=== PATIENT | male | born 1955 | race Two or more races ===

== ENCOUNTER 2024-05-22 18:50 | Emergency (ER) | payer OTHER ==
[~2024-05-22] VITALS: Ht 167.6 cm; Wt 93.0 kg
[2024-05-22 19:18] VITALS: BP 150/100; PULSE 107
[2024-05-22 19:27] VITALS: RESP 14
--- NOTE | 2024-05-22 20:14 | DVH ---
Procedure: XY NECK FOR SOFT TISSUE Exam Date: 05/22/2024 07:37 PM History: R/O FOREIGN BODY Comparison Study: None available at time of dictation. Technique: Soft Tissue Neck: AP and lateral views. Findings: No evidence of soft tissue swelling. Epiglottis appears normal. Linear density anterior to the body may represent a small foreign body versus calcification of the thyroid cartilage. Clinical correlation advised. Impression: Linear density anterior to the body may represent a small foreign body versus calcification of the th yroid cartilage. Clinical correlation advised.
--- NOTE | 2024-05-22 20:14 | DVH ---
CHEST RADIOGRAPH Indication: R/O FOREIGN BODY Technique: Single frontal view of the chest was obtained COMPARISON: None FINDINGS: Lines and Tubes: None Lungs: Clear Pleura: No effusion. No pneumothorax. Cardiomediastinal contours: Unremarkable Bones: Unremarkable IMPRESSION: No acute disease. No appreciable radiopaque foreign body.
--- NOTE | 2024-05-22 21:12 | DVH ---
_ Procedure: CT NECK WITHOUT CONTRAST Study Date and Requested Time: 05/22/2024 08:27 PM History: R/O FOREIGN BODY VS CALCIFICATION OF THYROID Comparison: Neck radiograph 03/21/2025 Dose: CTDI: 35.53 mGy DLP: 1006.4 mGycm Technique: Multiplanar images obtained through the neck without contrast Findings: 3mm hyperdensity over the medial wall of the left vallecula /left wall of the glosso epiglottic fold. The finding on radiograph appears to represent calcification of the vertical plate of the cricoid car tilage. Nasopharynx, oropharynx, hypopharynx, and larynx normal in caliber without evidence of focal mass. Pa rotid, submandibular, and sublingual glands within normal limits. Tongue within normal limits. Right palatine tonsilliths are noted. Cervical soft tissues within normal limits with no evidence of significant cervical lymphadenopathy. Thyroid gland is within normal limits. No evidence of superior mediastinal lymphadenopathy. Sclerotic focus over the right C5 and left C6 which may represent bone islands with blastic lesions n ot excluded. No destructive osseous lesions noted. Impression: 3mm hyperdensity over the medial wall of the left vallecula /left wall of the glosso epiglottic fold. correlate for possible small foreign body. The finding on radiograph appears to represent calcification of the vertical plate of the cricoid car tilage.
[2024-05-22] MEDS ORDERED: GLUCAGON EMERG KIT 1mg/1ml IM ONE (21:15)
[2024-05-22 21:38] VITALS: O2SAT 95
--- NOTE | 2024-05-22 21:38 | ED.PDOC ---
Eye-HPI HPI Comments 68 YEAR OLD MALE PRESENTS TO ER WITH COMPLAINTS OF FOREIGN BODY X 1 DAY. PATIENT STATES HE ACCIDENTALLY SWALLOWED A PIECE OF "NICORETTE GUM" APPROXIMATELY 1CM X 1 CM IN SIZE AT 6PM PRIOR TO ARRIVAL TO ER AND FELT SENSATION THAT THE GUM GOT STUCK IN HIS THROAT AND PRESENTS TO ER TODAY FOR R/O FOREIGN BODY. DENIES ANY PAIN AND DENIES USE OF MEDICATIONS FOR CURRENT SYMPTOMS. PATIENT PRESENTS TO ER AMBULATORY ON ARRIVAL, SPEAKING IN CLEAR/COMPLETE SENTENCES, IN NO DISTRESS. DENIES PAINFUL SWALLOWING, DROOLING, CHOKING, NAUSEA/VOMITING, COUGH, SHORTNESS OF BREATH, CHEST PAIN OR ANY FURTHER SYMPTOMS/COMPLAINTS Chief Complaint: Foreign Body Time Seen by MD: 19:31 Primary Care Provider: ISABELLA Reviewed Notes: Nurses Notes, Medications, Allergies Allergies: Coded Allergies: NO KNOWN ALLERGIES (Unverified , 05/22/24) Information Source: Patient Mode of Arrival: Ambulatory Past Medical History PAST MEDICAL HISTORY: Denies Surgical History: Denies all surgeries Family History Family History: Unknown Social History Smoker: Non-Smoker Alcohol: Denies ETOH Use Drugs: Denies Drug Use Lives In: Home Constitutional: denies: chills, diaphoresis, fatigue, fever, malaise, sweats, weakness, others EENTM: reports: others ( STATED IN HPI) Respiratory: denies: cough, hemoptysis, orthopnea, SOB at rest, shortness of breath, SOB with excertion, stridor, wheezing, others Cardiovascular: denies: chest pain, dizzy spells, diaphoresis, Dyspnea on exertion, edema, irregular heart beat, left arm pain, lightheadedness, palpita tions, PND, syncope, others Gastrointestinal: denies: abdomen distended, abdominal pain, blood streaked chris wels, constipated, diarrhea, dysphagia, difficulty swallowing, hematemesis, melena, nausea, poor appetite, poor fluid intake, rectal bleeding, rectal pain, vomiting, others Genitourinary: denies: burning, dysuria, flank pain, frequency, hematuria, incontinence, penile discharge, penile sore, pain, testicle pain, testicle swelling, urgency, others Neurological: denies: dizziness, fainting, headache, left sided numbness, left sided weakness, numbness, paresthesia, pre-existing deficit, right sided numbness, right sided weakness, seizure, speech problems, tingling, tremors, weakness, others Musculoskeletal: denies: back pain, gout, joint pain, joint swelling, muscle pain, muscle stiffness, neck pain, others Integumetry: denies: bruises, change in color, change in hair/nails, dryness, laceration, lesions, lumps, rash, wounds, others Allergic/Immunocompromised: denies: Difficulty Healing, Frequent Infections, Hives, Itching, others Hematologic/Lymphatic: denies: anemia, blood clots, easy bleeding, easy bruisin g, swollen glands, others Endocrine: denies: excessive hunger, excessive sweating, excessive thirst, excessive urination, flushing, intolerance to cold, intolerance to heat, unexplained weight gain, unexplained weight loss, others Psychiatric: denies: anxiety, bipolar disorder, depression, hopeless, panic disorder, schizophrenia, sleepless, suicidal, others Physical Exam General Appearance: No Apparent Distress HEENT: Normal ENT Inspection, PERRL/EOMI, Pharynx Normal (NO FOREIGN BODY APPRECIATED. NORMAL MOUTH/THROAT EXAMINATION), TMs Normal Neck: Full Range of Motion, Non-Tender, Normal Respiratory: Chest Non-Tender, Lungs Clear, No Accessory Muscle Use, No Respiratory Distress, Normal Breath Sounds Cardiovascular: No Murmur, No Gallop, Regular Rate/Rhythm Breast Exam: Deferred Gastrointestinal: NOT DONE Genitalia: Deferred Pelvic: Deferred Rectal: Deferred Extremities: Normal capillary refill, Normal range of motion Neurologic: Alert, No Motor Deficits, Normal Affect, Normal Mood, No Sensory Deficits Cerebellar Function: Normal Reflexes: Normal Skin: Dry, Normal Color, Warm Peripheral Pulses: 2+ Radial (R), 2+ Radial (L), 2+ Brachial (R), 2+ Brachial (L) Lymphatic: No Adenopathy Was a procedure done? Was a procedure done?: No Sedation Sedation?: No EENT DIFF Eye: N/A Sore Throat: URI, Other (FOREIGN BODY, ESOPHAGEAL PERFORATION, MASS) X-Ray, Labs, Meds, VS Vital Signs Date Time Temp Pulse Resp B/P (MAP) Pulse Ox O2 Delivery O2 Flow Rate FiO2 05/22/24 21:38 95 Room Air* 0 21 05/22/24 19:27 14 95 Room Air* 0 21 05/22/24 19:18 97.6 107 14 150/100 (117) 95 PATIENT: FLORINDA GOMEZCCT: [id number]: [id number] : 1955 LOC: ER ROOM / BED: / AGE / SEX: 68 / M ADM STATUS: REG ER SERVICE 30 ORDERING PHYSICIAN: CHASE JAMES PROCEDURE(s): CXR1 - CHEST XRAY 1 VIEW REASON: R/O FOREIGN BODY ORDER NUMBER(s): [id number], ACCESSION NUMBER(s): [id number] CHEST RADIOGRAPH Indication: R/O FOREIGN BODY Technique: Single frontal view of the chest was obtained COMPARISON: None FINDINGS: Lines and Tubes: None Lungs: Clear Pleura: No effusion. No pneumothorax. Cardiomediastinal contours: Unremarkable Bones: Unremarkable IMPRESSION: No acute disease. No appreciable radiopaque foreign body. ATED BY: DARREL ZAVALA MD DICTATED DATE/TIME: 05/22/242008 SIGNED BY: DARREL ZAVALA MD SIGNED DATE/TIME: 05/22/242008 CC: PATIENT: MARKO GOMEZ ACCT: [id number] UNIT: [id number] : 1955 LOC: ER ROOM / BED: / AGE / SEX: 68 / M ADM STATUS: REG ER SERVICE 30 ORDERING PHYSICIAN: CHASE JAMES PROCEDURE(s): NECK - NECK FOR SOFT TISSUE REASON: R/O FOREIGN BODY ORDER NUMBER(s): [id number], ACCESSION NUMBER(s): [id number] Procedure: XY NECK FOR SOFT TISSUE Exam Date: 05/22/2024 07:37 PM History: R/O FOREIGN BODY Comparison Study: None available at time of dictation. Technique: Soft Tissue Neck: AP and lateral views. Findings: No evidence of soft tissue swelling. Epiglottis appears normal. Linear density anterior to the body may represent a small foreign body versus calcification of the thyroid cartilage. Clinical correlation advised. Impression: Linear density anterior to the body may represent a small foreign body versus calcification of the thyroid cartilage. Clinical correlation advised. ATED BY: DARREL ZAVALA MD DICTATED DATE/TIME: 05/22/242008 SIGNED BY: DARREL ZAVALA MD SIGNED DATE/TIME: 05/22/242008 CC: PATIENT: MARKO GOMEZ ACCT: [id number] UNIT: [id number] : 1955 LOC: ER ROOM / BED: / AGE / SEX: 68 / M ADM STATUS: REG ER SERVICE 20 ORDERING PHYSICIAN: CHASE JAMES PROCEDURE(s): NKICT - NECK WITHOUT CONTRAST REASON: R/O FOREIGN BODY VS CALCIFICATION OF THYROID ORDER NUMBER(s): [id number], ACCESSION NUMBER(s): [id number] _ Procedure: CT NECK WITHOUT CONTRAST Study Date and Requested Time: 05/22/2024 08:27 PM History: R/O FOREIGN BODY VS CALCIFICATION OF THYROID Comparison: Neck radiograph 03/21/2025 Dose: CTDI: 35.53 mGy DLP: 1006.4 mGycm Technique: Multiplanar images obtained through the neck without contrast Findings: 3mm hyperdensity over the medial wall of the left vallecula /left wall of the glosso epiglottic fold. The finding on radiograph appears to represent calcification of the vertical plate of the cricoid cartilage. Nasopharynx, oropharynx, hypopharynx, and larynx normal in caliber without evidence of focal mass. Parotid, submandibular, and sublingual glands within normal limits. Tongue within normal limits. Right palatine tonsilliths are noted. Cervical soft tissues within normal limits with no evidence of significant cervical lymphadenopathy. Thyroid gland is within normal limits. No evidence of superior mediastinal lymphadenopathy. Sclerotic focus over the right C5 and left C6 which may represent bone islands with blastic lesions not excluded. No destructive osseous lesions noted. Impression: 3mm hyperdensity over the medial wall of the left vallecula /left wall of the glosso epiglottic fold. correlate for possible small foreign body. The finding on radiograph appears to represent calcification of the vertical plate of the cricoid cartilage. ATED BY: SARA PLATT DO DICTATED DATE/TIME: 05/22/242108 SIGNED BY: SARA PLATT DO SIGNED DATE/TIME: 05/22/242108 CC: X-RAY IMAGING/CT NECK IMAGING REVIEWED PATIENT STATES AFTER HIS CT NECK IMAGING WAS DONE THAT HIS SYMPTOMS OF FOREIGN BODY SENSATION FULLY SUBSIDED AND CURRENTLY IS NOT EXPERIENCING ANY FOREIGN BODY SENSATION IN THROAT PATIENT TOLERATING P.O. INTAKE WELL WITHOUT PAIN/DIFFICULTY AND IS ASYMPTOMATIC PRIOR TO DISCHARGE ADVISED TO DRINK PLENTY OF FLUIDS ADVISED TO FOLLOW UP WITH PCP AND ENT IN 1-2 DAYS PATIENT VERBALIZED UNDERSTANDING AND AGREEABLE WITH CURRENT PLAN OF CARE ADVISED TO RETURN TO ER IMMEDIATELY IF SYMPTOMS WORSEN Images Reviewed?: Images reviewed and evaluated by me Time of 1ST Reevaluation: 21:00 Reevaluation 1ST: N/A Time of 2ND Reevaluation: 21:30 Reevaluation 2ND: Resolved Patient Education/Counseling: Diagnosis, Treatment, Prognosis, Need For Follow Up Family Education/Counseling: Other Departure 1 Departure Time of Disposition: 21:32 Impression: Primary Impression: Encounter for observation for suspected ingested foreign body ruled out Disposition: HOME / SELF CARE / HOMELESS Condition: Stable Discharged With: Self Critical Care Note Critical Care Time?: No Stability Stability form required: No Heart Score Heart Score: Heart Score Response (Comments) Value History N/A 0 EKG N/A 0 Age N/A 0 Risk Factors N/A 0 Troponin N/A 0 Total 0 CHASE JAMES May 22, 2024 21:38
== END 2024-05-22 21:47 | disposition home or self-care (01) ==
LOC: ER 18:54
DX: Z03.821 Encounter for observation for suspected ingested foreign body ruled out (principal); M54.2 Cervicalgia; W44.8XXA Other foreign body entering into or through a natural orifice, initial encounter; Y93.89 Activity, other specified; Y92.89 Other specified places as the place of occurrence of the external cause; Y99.8 Other external cause status
CPT/HCPCS: 70360; 70490; 71045